=== PATIENT | male | born 1985 | race Caucasian/White ===

== ENCOUNTER 2019-05-11 14:14 | Emergency (ER) | payer BC, OTHER ==
--- NOTE | 2019-05-11 14:54 | EDM.PDOC ---
ED HPI GENERAL MEDICAL PROBLEM - General Chief Complaint: Eye Problems Stated Complaint: EYE SWELLING AND REDNESS Time Seen by Provider: 05/11/19 14:31 Source of Information: Reports: Patient, RN Notes Reviewed - History of Present Illness INITIAL COMMENTS - FREE TEXT/NARRATIVE: 33 year old male was "poked in L eye accidentally 4 to 5 days ago". Became more sore and inflamed a day or so later. Now has had mattering and crusting of the lids for the last 2 to 3 days, especially during the night and when awakening in the morning. He feels like there was "stye" that ruptured 2 days ago L lower eyelid. He does not wear contacts. He has localized discomfort, no severe Rolon, nausea, vomiting, fever or chills. Left Eye Pain Score (Numeric/FACES): 6 Past Medical History - Past Health History Medical/Surgical History: Denies Medical/Surgical History Social & Family History - Tobacco Use Smoking Status *Q: Never Smoker ED ROS GENERAL - Review of Systems Review Of Systems: See Below Constitutional: Denies: Fever, Chills HEENT: Reports: Eye Discharge, Eye Pain. Denies: Sinus Problem, Throat Pain Respiratory: Denies: Shortness of Breath, Cough GI/Abdominal: Denies: Nausea, Vomiting Musculoskeletal: Reports: No Symptoms Skin: Denies: Rash Neurological: Reports: No Symptoms ED EXAM GENERAL W FULL EYE - Physical Exam Exam: See Below General Appearance: Alert, No Apparent Distress Eye Exam: Left Eye: Conjunctival Injection, Bilateral Eye: PERRL Conjunctiva & Sclera: Left: Injected Cornea Exam: Bilateral: Normal Appearance Comments: no foreign body seen, no evidence for corneal abrasion or injury at time of exam , small amt of exudate under L upper eyelid. Very mild swelling of L upper eyelid. Pupils mid size, equally reactive. He did get relief of discomfort after alcain eyedrops topical. Will treat with tobradex, discharge instr. as documented. Course - Vital Signs Last Recorded V/S: Last Vital Signs Temp Pulse 85 05/11/19 14:31 Resp 16 05/11/19 14:31 BP 126/85 05/11/19 14:31 Pulse Ox 100 05/11/19 14:31 Departure - Departure Time of Disposition: 14:52 Disposition: Home, Self-Care 01 Condition: Fair Clinical Impression: Conjunctivitis - Discharge Information Instructions: Bacterial Conjunctivitis, [id number] Forms: ED Department Discharge Additional Instructions: continue cool compresses as needed. Tobradex Opthalmic soln, 2 gtts q4 to 6 hr for 5 days or until symptoms resolve. You may take tylenol or ibuprofen if needed for discomfort. See your eye Dr if not much better within 2 to 3 days as expected or if symptoms worsening in any way. Sepsis Event Note - Evaluation Sepsis Screening Result: No Definite Risk - Focused Exam Vital Signs: Vital Signs Pulse Resp BP Pulse Ox 05/11/19 14:31 85 16 126/85 100 Date Exam was Performed: 05/11/19 Time Exam was Performed: 14:59
== END 2019-05-11 15:01 | disposition home or self-care (01) ==
LOC: JD.ED 14:14
DX: H10.9 Unspecified conjunctivitis (principal)
CPT/HCPCS: 99282